=== PATIENT | male | born 1965 | race Caucasian/White ===

== ENCOUNTER 2022-12-08 10:32 | Emergency (ER) | payer OTHER ==
[~2022-12-08] VITALS: Ht 182.9 cm; Wt 103.5 kg
[2022-12-08] MEDS ORDERED: METOPROLOL SUCC50 MG PO (11:04)
[2022-12-08] MEDS ORDERED: COQ-10100 MG (11:04)
[2022-12-08] MEDS ORDERED: ranitidine PO (11:04)
[2022-12-08] MEDS ORDERED: ROSUVASTATIN CA40 MG (11:04)
[2022-12-08] MEDS ORDERED: MULTI-VITAMIN1 EACH PO (11:04)
[2022-12-08] MEDS ORDERED: ASPIRIN EC81 MG PO (11:04)
[2022-12-08] MEDS ORDERED: AMBIEN10 MG PO (11:04)
[2022-12-08] MEDS ORDERED: chantix (11:04)
[2022-12-08] MEDS ORDERED: ULTRAM 50MG50 MG PO (11:04)
[2022-12-08] MEDS ORDERED: VITAMIN D325 MCG (11:04)
[2022-12-08] MEDS ORDERED: CIALIS20 MG (11:04)
[2022-12-08] MEDS ORDERED: TOBREX5 ML OP (11:13)
[2022-12-08] MEDS ORDERED: FLUORESCEIN SOD(OPTH) 1 MG STRP OP ONE (11:15)
[2022-12-08] MEDS ORDERED: TETRACAINE HCL 0.5% OPTH SOLN 4 ML BTL OP ONE (11:15)
== END 2022-12-08 11:21 | disposition home or self-care (01) ==
LOC: FSED 10:46
DX: H10.9 Unspecified conjunctivitis (principal); I10 Essential (primary) hypertension; I25.810 Atherosclerosis of coronary artery bypass graft(s) without angina pectoris; E78.5 Hyperlipidemia, unspecified; F17.200 Nicotine dependence, unspecified, uncomplicated; Z71.6 Tobacco abuse counseling; Z88.1 Allergy status to other antibiotic agents; Z88.2 Allergy status to sulfonamides; Z79.82 Long term (current) use of aspirin; Z79.899 Other long term (current) drug therapy; Z95.1 Presence of aortocoronary bypass graft
CPT/HCPCS: 99283